=== PATIENT | male | born 1965 | race Caucasian/White ===

== ENCOUNTER 2017-01-12 09:12 | Inpatient (IN) | payer BC ==
[~2017-01-12] VITALS: Ht 177.8 cm; Wt 93.0 kg
[2017-01-12 09:33] LABS: BASOPHILS 0.2 % (0-2); EOSINOPHILS 0.3 % (0-7); HEMATOCRIT 48.5 % (42.0-54.0); HEMOGLOBIN 16.8 g/dL (13.5-17.5); IMMATURE GRANULOCYTES 0.3 % (0-5); LYMPHOCYTES 6.7 % (15-50); MCH 31.5 pg (26.0-34.0); MCHC 34.6 g/dL (31.0-37.0); MEAN PLATELET VOLUME 9.8 fL (7.4-10.4); MONOCYTES 8.3 % (2-11); NEUTROPHILS 84.2 % (40-80); PLATELET COUNT 143 10x3/uL (130-400); RBC 5.33 10x6/uL (4.20-6.10); RDW 13.2 % (11.5-14.5); WBC 11.7 10x3/uL (4.8-10.8)
[2017-01-12 09:48] LABS: ALBUMIN 3.6 g/dL (3.4-5.0); ANION GAP 10.2 mmol/L (8-16); BILIRUBIN - TOTAL 0.89 mg/dL (0.2-1.3); CALCIUM 9.3 mg/dL (8.5-10.1); CARBON DIOXIDE 30.2 mmol/L (21.0-32.0); CREATININE - SERUM 1.4 mg/dL (0.6-1.3); POTASSIUM - SERUM 4.4 mmol/L (3.5-5.1); PROTEIN - SERUM 6.7 g/dL (6.4-8.2)
[2017-01-12 10:32] LABS: APPEARANCE HAZY (CLEAR); BILIRUBIN NEGATIVE (NEGATIVE); COLOR DK YELLOW (YELLOW); GLUCOSE NEGATIVE (NEGATIVE); KETONE NEGATIVE (NEGATIVE); LEUKOCYTE ESTERASE NEGATIVE (NEGATIVE); NITRITE NEGATIVE (NEGATIVE); PROTEIN NEGATIVE (NEGATIVE); SPECIFIC GRAVITY 1.005 (1.005-1.020); UROBILINOGEN NORMAL (NORMAL)
[2017-01-12] MEDS ORDERED: TESTOSTERON200 MG/ML IM (10:49)
[2017-01-12] MEDS ORDERED: LISINOPRIL10 MG PO (10:50)
[2017-01-12] MEDS ORDERED: ZANTAC150 MG PO (10:50)
[2017-01-12 11:47] VITALS: BMI 29.4
[2017-01-12 12:30] VITALS: BP 103/64
[2017-01-12 16:02] VITALS: BP 97/43
[2017-01-13] VITALS: BP 92/44
[2017-01-13 04:00] VITALS: BP 110/61
[2017-01-13 05:16] LABS: BASOPHILS 0.3 % (0-2); EOSINOPHILS 0.8 % (0-7); HEMATOCRIT 46.8 % (42.0-54.0); HEMOGLOBIN 15.9 g/dL (13.5-17.5); IMMATURE GRANULOCYTES 0.2 % (0-5); MCH 31.5 pg (26.0-34.0); MCV 92.7 fL (80.0-100.0); MEAN PLATELET VOLUME 9.8 fL (7.4-10.4); MONOCYTES 8.2 % (2-11); NEUTROPHILS 77.5 % (40-80); PLATELET COUNT 137 10x3/uL (130-400); RBC 5.05 10x6/uL (4.20-6.10); RDW 13.5 % (11.5-14.5); WBC 9.2 10x3/uL (4.8-10.8)
[2017-01-13 05:32] LABS: ANION GAP 9.2 mmol/L (8-16); CALCIUM 8.3 mg/dL (8.5-10.1); CARBON DIOXIDE 31.8 mmol/L (21.0-32.0); CREATININE - SERUM 1.2 mg/dL (0.6-1.3)
[2017-01-13 08:23] VITALS: BP 123/69
[2017-01-13 13:03] VITALS: BP 117/71
[2017-01-13 15:15] VITALS: Ht 177.8 cm; Wt 93.0 kg
[2017-01-13 17:18] VITALS: BP 122/69
[2017-01-13 20:00] VITALS: BP 99/61
[2017-01-14] VITALS: BP 128/66
[2017-01-14 04:00] VITALS: BP 128/78
[2017-01-14 06:06] LABS: BASOPHILS 0.3 % (0-2); EOSINOPHILS 0.8 % (0-7); HEMATOCRIT 44.9 % (42.0-54.0); HEMOGLOBIN 15.3 g/dL (13.5-17.5); IMMATURE GRANULOCYTES 0.1 % (0-5); MCH 31.5 pg (26.0-34.0); MCHC 34.1 g/dL (31.0-37.0); MCV 92.4 fL (80.0-100.0); MEAN PLATELET VOLUME 9.6 fL (7.4-10.4); MONOCYTES 8.6 % (2-11); NEUTROPHILS 76.2 % (40-80); PLATELET COUNT 152 10x3/uL (130-400); RBC 4.86 10x6/uL (4.20-6.10); RDW 13.3 % (11.5-14.5); WBC 7.9 10x3/uL (4.8-10.8)
[2017-01-14 06:29] LABS: ANION GAP 13.6 mmol/L (8-16); CALCIUM 8.3 mg/dL (8.5-10.1); CARBON DIOXIDE 25.2 mmol/L (21.0-32.0); CREATININE - SERUM 1.1 mg/dL (0.6-1.3); POTASSIUM - SERUM 3.8 mmol/L (3.5-5.1)
[2017-01-14 08:31] VITALS: BP 127/81
[2017-01-14 20:00] VITALS: BP 125/77
[2017-01-15] VITALS: BP 128/65
[2017-01-15 04:00] VITALS: BP 125/78
[2017-01-15 05:09] LABS: BASOPHILS 0.5 % (0-2); EOSINOPHILS 2.1 % (0-7); HEMATOCRIT 45.6 % (42.0-54.0); HEMOGLOBIN 15.5 g/dL (13.5-17.5); LYMPHOCYTES 17.7 % (15-50); MCH 31.3 pg (26.0-34.0); MCV 91.9 fL (80.0-100.0); MEAN PLATELET VOLUME 9.7 fL (7.4-10.4); MONOCYTES 8.9 % (2-11); NEUTROPHILS 70.8 % (40-80); PLATELET COUNT 166 10x3/uL (130-400); RBC 4.96 10x6/uL (4.20-6.10); RDW 13.1 % (11.5-14.5)
[2017-01-15 05:11] LABS: WBC 5.7 10x3/uL (4.8-10.8)
[2017-01-15 05:18] LABS: ANION GAP 10.9 mmol/L (8-16); CREATININE - SERUM 1.1 mg/dL (0.6-1.3); POTASSIUM - SERUM 3.9 mmol/L (3.5-5.1)
[2017-01-15 08:39] VITALS: BP 137/65
[2017-01-15] MEDS ORDERED: LEVAQUIN750 MG PO (12:55)
[2017-01-15] MEDS ORDERED: FLAGYL500 MG PO (12:55)
[2017-01-15 13:10] VITALS: BP 151/97
== END 2017-01-15 14:35 | disposition home or self-care (01) | DRG 392 ==
LOC: D.LAB 09:12 → D.CT 09:30 → D.MS 10:39
PROVIDERS: ADMIT Surgery
DX: K57.80 Diverticulitis of intestine, part unspecified, with perforation and abscess without bleeding (principal); I10 Essential (primary) hypertension

== ENCOUNTER 2017-02-07 11:12 | Inpatient (IN) | payer BC ==
[~2017-02-07] VITALS: Ht 177.8 cm; Wt 90.7 kg
--- NOTE | ~2017-02-07 | PN ---
PATIENT:MECCA KIM MEDICAL RECORD: [id number] LOCATION:D.MS Liu222 ADMISSION DATE: 02/07/17 PROGRESS NOTE DATE OF SERVICE: 02/08/2017 CHIEF COMPLAINT: Diverticulitis. SUBJECTIVE: The patient is having less abdominal pain and tenderness. There is no peritonitis to percussion. Palpation aggravates. Nothing alleviates. His symptoms are moderate in severity. This is a progress note addendum. For the typed portion of the progress note, please see the chart. This would include past medical and surgical history, allergies and social history. REVIEW OF SYSTEMS: Positive for nausea. Positive for abdominal pain. PHYSICAL EXAMINATION: GENERAL: The patient does not appear acutely ill. He does not appear chronically ill. VITAL SIGNS: Reviewed. HEAD: External ears appear normal. EYES: Extraocular movements are intact. NECK: Trachea is midline. CHEST: No intercostal retractions. PULMONARY: Nonlabored, no stridor. ABDOMEN: As described above. IMPRESSION: Diverticulitis, improving. PLAN: Continue IV antibiotics for now. TRANSINT:[id number] Voice Confirmation ID: [id number] DOCUMENT ID: [id number] ESAU ROQUE MD CC: [id number] DICTATION DATE: 02/12/17 1113 DOWEL POINTER: 02/12/17 1842 DIS IN 02/12/17 [facility] [address] [place] [address]
--- NOTE | ~2017-02-07 | PN ---
PATIENT:MECCA KIM MEDICAL RECORD: [id number] LOCATION:D.MS Lal ADMISSION DATE: 02/07/17 PROGRESS NOTE DATE OF SERVICE: 02/11/2017 CHIEF COMPLAINT: Diverticulitis. SUBJECTIVE: The patient is feeling better. He is having less abdominal pain. I reviewed the CT images as well as the CT report. He is having less nausea. He is tolerating a diet. There is no peritonitis to percussion. He still has some abdominal tenderness. Palpation aggravates. Nothing alleviates. This is a progress note addendum. For the typed portion of progress note, please see the typed portion of the chart. This would include past medical and surgical history, allergies, and current medications. REVIEW OF SYSTEMS: Positive for nausea. No vomiting, no fever, no chills, no chest pain. Positive for abdominal pain. PHYSICAL EXAMINATION: GENERAL: The patient does not appear acutely ill. He does not appear chronically ill. VITAL SIGNS: Reviewed. HEAD: External ears appear normal. EYES: Extraocular movements are intact. NECK: Trachea is midline. CHEST: No intercostal retractions. PULMONARY: Nonlabored, no stridor. ABDOMEN: No peritonitis. Some tenderness in the left lower quadrant as well as the right lower quadrant. IMPRESSION: Diverticulitis with improvement. PLAN: Continue with intravenous antibiotics. The plan will be for conversion to outpatient oral antibiotics in a few days and then hopefully, a segmental colectomy in 6 weeks to 3 months. TRANSINT:[id number] Voice Confirmation ID: [id number] DOCUMENT ID: [id number] ESAU ROQUE MD CC: [id number] DICTATION DATE: 02/12/[address] MACHINE RUNNER: 02/12/17 1836 DIS IN 02/12/17 [facility] [address] [place] [address]
--- NOTE | ~2017-02-07 | PN ---
PATIENT:MECCA KIM MEDICAL RECORD: [id number] LOCATION:D.MS Lal ADMISSION DATE: 02/07/17 PROGRESS NOTE DATE OF SERVICE: 02/10/2017 CHIEF COMPLAINT: Diverticulitis. SUBJECTIVE: The patient is having some increased nausea. He is hungry however. As he has had increased nausea, I am going to order a repeat CT scan as there has been a change in his condition. Palpation aggravates. Nothing alleviates. He is having less abdominal pain, less abdominal tenderness. No peritonitis to cough. This is a progress note addendum. For the typed portion of the progress note, please see the chart. This will include the past medical and surgical history, allergies, social history and current medications. REVIEW OF SYSTEMS: Positive for nausea. No vomiting. PHYSICAL EXAMINATION: GENERAL: The patient does not appear acutely ill. He does not appear chronically ill. VITAL SIGNS: Reviewed. HEAD: External ears appear normal. EYES: Extraocular movements are intact. NECK: Trachea is midline. CHEST: No intercostal retractions. PULMONARY: Nonlabored. No stridor. ABDOMEN: As described above. IMPRESSION: Diverticulitis with increased nausea. PLAN: Continue IV antibiotics. Repeat CT scan of the abdomen and pelvis to ensure that the patient has not developed a perforation or abscess. TRANSINT:[id number] Voice Confirmation ID: [id number] DOCUMENT ID: [id number] ESAU ROQUE MD CC: [id number] DICTATION DATE: 02/12/171116 BATCHMAKER: 02/12/171904 DIS IN 02/12/17 [facility] [address] [place] [id number]
--- NOTE | ~2017-02-07 | PN ---
PATIENT:MECCA KIM MEDICAL RECORD: [id number] LOCATION:D.MS Liu222 ADMISSION DATE: 02/07/17 PROGRESS NOTE DATE OF SERVICE: 02/09/2017 CHIEF COMPLAINT: Diverticulitis. SUBJECTIVE: He continues to improve. He is having some nausea. Less abdominal pain. Palpation aggravates. Nothing alleviates. Symptoms are mild in severity. This is a progress note addendum. For the typed portion of the progress note, please see the chart. This would include the patient's past medical and surgical history, allergies and current medications. REVIEW OF SYSTEMS: Positive for nausea. Positive for abdominal pain. PHYSICAL EXAMINATION: GENERAL: The patient does not appear acutely ill. He does not appear chronically ill. VITAL SIGNS: Reviewed. HEAD: External ears appear normal. EYES: Extraocular movements are intact. NECK: Trachea is midline. CHEST: No intercostal retractions. PULMONARY: Nonlabored, no stridor. ABDOMEN: As described above. IMPRESSION: Diverticulitis, improving. This is a recurrent bout of diverticulitis. PLAN: Continue with IV antibiotics. TRANSINT:[id number] Voice Confirmation ID: [id number] DOCUMENT ID: [id number] ESAU ROQUE MD CC: [id number] DICTATION DATE: 02/12/17 1115 DUMPER BULK SYSTEM: 02/12/17 1843 DIS IN 02/12/[address] [facility] [address] [place] [address]
--- NOTE | ~2017-02-07 | CN ---
PATIENT NAME:MECCA KIM MEDICAL RECORD: [id number] : 61 LOCATION:D.MS Liu2229 ADMIT DATE: 02/07/17 ACCOUNT: [id number] CONSULTING PHYSICIAN: ESAU ROQUE MD REFERRING PHYSICIAN: BRISA REARDON MD DATE OF CONSULTATION: 02/07/2017 I just did a history and physical on him and instead of history and physical that should have been a consultation. If you would change that to a consultation, I would appreciate it. TRANSINT:[id number] Voice Confirmation ID: [id number] DOCUMENT ID: [id number] ESAU ROQUE MD CC: [id number] DICTATION DATE: 02/07/17 1605 TITLE ATTORNEY: 02/07/172206 ADM IN [place] [id number] [place] [id number]
--- NOTE | ~2017-02-07 | DS ---
PATIENT:MECCA KIM :61 MEDICAL RECORD: [id number] DISCHARGE SUMMARY ADMISSION DATE: 02/07/17 DISCHARGE DATE: 02/12/17 He is tolerating a regular diet. He is having almost no abdominal pain now. The abdominal pain that he is having is in the right lower quadrant. He is being dismissed home on Cipro as well as Flagyl, both for 10 days, as well as [place]. I will see him in the office in 2-3 weeks. My plan is a segmental colectomy, hopefully to be performed laparoscopically in 6 weeks to 3 months. This is a recurrent bout of diverticulitis. DIAGNOSIS: Recurrent diverticulitis. TRANSINT:[id number] Voice Confirmation ID: [id number] DOCUMENT ID: [id number] ESAU ROQUE MD CC: [id number] DICTATION DATE: 02/12/17 1142 STEM CLEANING MACHINE FEEDER: 02/13/17 0153 DIS IN 02/12/17 [facility] [address] [place] [address]
[~2017-02-07 11:12] MED LIST: FLAGYL500 MG PO; LEVAQUIN750 MG PO; LISINOPRIL10 MG PO; TESTOSTERON200 MG/ML IM; ZANTAC150 MG PO
[2017-02-07 11:33] LABS: BASOPHILS 0.2 % (0-2); EOSINOPHILS 0.5 % (0-7); HEMATOCRIT 50.2 % (42.0-54.0); HEMOGLOBIN 17.1 g/dL (13.5-17.5); IMMATURE GRANULOCYTES 0.3 % (0-5); LYMPHOCYTES 7.3 % (15-50); MCH 31.1 pg (26.0-34.0); MCHC 34.1 g/dL (31.0-37.0); MCV 91.4 fL (80.0-100.0); MEAN PLATELET VOLUME 9.4 fL (7.4-10.4); MONOCYTES 6.6 % (2-11); NEUTROPHILS 85.1 % (40-80); PLATELET COUNT 162 10x3/uL (130-400); RBC 5.49 10x6/uL (4.20-6.10); RDW 13.1 % (11.5-14.5); WBC 14.4 10x3/uL (4.8-10.8)
[2017-02-07 11:42] LABS: APPEARANCE CLEAR (CLEAR); BILIRUBIN NEGATIVE (NEGATIVE); COLOR YELLOW (YELLOW); GLUCOSE NEGATIVE (NEGATIVE); KETONE NEGATIVE (NEGATIVE); LEUKOCYTE ESTERASE NEGATIVE (NEGATIVE); NITRITE NEGATIVE (NEGATIVE); PROTEIN NEGATIVE (NEGATIVE); SPECIFIC GRAVITY 1.015 (1.005-1.020); UROBILINOGEN NORMAL (NORMAL)
[2017-02-07 11:52] LABS: ALBUMIN 3.9 g/dL (3.4-5.0); ANION GAP 12.5 mmol/L (8-16); BILIRUBIN - TOTAL 1.15 mg/dL (0.2-1.3); CALCIUM 9.5 mg/dL (8.5-10.1); CREATININE - SERUM 1.1 mg/dL (0.6-1.3); POTASSIUM - SERUM 4.5 mmol/L (3.5-5.1); PROTEIN - SERUM 7.2 g/dL (6.4-8.2)
--- NOTE | 2017-02-07 14:30 | NUR ---
RECEIVED TO ROOM 2229 FROM ER VIA . IV TO R FA PATENT.
[2017-02-07 14:38] VITALS: BP 100/61; BMI 28.7
--- NOTE | 2017-02-07 18:00 | NUR ---
VISITING WITH FAMILY. CALENDER WIND UP TENDER DILAUDID 0.2-10-0 IN USE FOR PAIN CONTROL.
[2017-02-07 20:00] VITALS: BP 100/62
[2017-02-08] VITALS: BP 122/68
[2017-02-08 04:00] VITALS: BP 106/44
[2017-02-08 06:43] LABS: BASOPHILS 0.2 % (0-2); EOSINOPHILS 0.7 % (0-7); HEMATOCRIT 45.1 % (42.0-54.0); HEMOGLOBIN 15.2 g/dL (13.5-17.5); IMMATURE GRANULOCYTES 0.2 % (0-5); MCHC 33.7 g/dL (31.0-37.0); MCV 91.9 fL (80.0-100.0); MEAN PLATELET VOLUME 10.1 fL (7.4-10.4); MONOCYTES 7.3 % (2-11); NEUTROPHILS 80.6 % (40-80); PLATELET COUNT 145 10x3/uL (130-400); RBC 4.91 10x6/uL (4.20-6.10); RDW 13.4 % (11.5-14.5); WBC 9.5 10x3/uL (4.8-10.8)
[2017-02-08 07:09] LABS: ALKALINE PHOSPHATASE 55 U/L (46-116); ALT (SGPT) 23 U/L (10-68); CALCIUM 8.1 mg/dL (8.5-10.1); CARBON DIOXIDE 26.3 mmol/L (21.0-32.0); CHLORIDE - SERUM 105 mmol/L (98-107); GLUCOSE 107 mg/dL (74-106); PROTEIN - SERUM 5.9 g/dL (6.4-8.2); SODIUM 137 mmol/L (136-145); eGFR NON AFRICAN AMERICAN 83 mL/min (90-120)
[2017-02-08 07:10] VITALS: BP 121/73
[2017-02-08 07:15] LABS: CALC OSMOLALITY 273 mosm/kg (275-300); POTASSIUM - SERUM 3.7 mmol/L (3.5-5.1); UREA NITROGEN 12 mg/dL (7-18)
--- NOTE | 2017-02-08 07:35 | NUR ---
LYING IN BED, DENIES NEEDS, BED LOWEST POSITION, CALL LIGHT IN REACH, WILL CONTINEU TO MONITOR
--- NOTE | 2017-02-08 09:06 | NUR ---
PATIENT SUPIN IN BED RESTING WITH EYES CLOSED. RESPIRATIONS EVEN AND UNLABORED. GUEST AT BEDSIDE. SIDE RAILS UP X2. BED IN LOW POSITION. CALL LIGHT IN REACH.
--- NOTE | 2017-02-08 09:20 | NUR ---
COMPLAINTS OF NAUSEA, ZOFRAN GIVEN
[2017-02-08 12:04] VITALS: BP 102/52; BP 125/62
[2017-02-08 15:54] VITALS: BP 117/65
--- NOTE | 2017-02-08 19:00 | NUR ---
PATIENT IN BED VISITING WITH . AAOX4. RR EVEN AND UNLABORED. 0 S/S OF DISTRESS. STATES PAIN IS A 6/10. IV TO RIGHT FA PATENT WITH NO REDNESS OR SWELLING. SCD'S OFF. SRX2. BED LOW. CALL LIGHT WITHIN REACH.
[2017-02-08 20:00] VITALS: BP 121/73
--- NOTE | 2017-02-08 22:30 | NUR ---
PATIENT AMBULATED IN HALLWAY AND NOW BACK IN ROOM. NIGHTTIME MEDICATIONS ADMINISTERED. NO OTHER NEEDS AT THIS TIME.
--- NOTE | 2017-02-09 03:00 | NUR ---
PATIENT SLEEPING WITH NO DISTRESS NOTED. CALL LIGHT WITHIN REACH.
[2017-02-09 06:56] LABS: BASOPHILS 0.2 % (0-2); EOSINOPHILS 0.8 % (0-7); HEMATOCRIT 44.4 % (42.0-54.0); HEMOGLOBIN 14.9 g/dL (13.5-17.5); IMMATURE GRANULOCYTES 0.2 % (0-5); LYMPHOCYTES 12.5 % (15-50); MCHC 33.6 g/dL (31.0-37.0); MCV 92.3 fL (80.0-100.0); MONOCYTES 9.6 % (2-11); NEUTROPHILS 76.7 % (40-80); PLATELET COUNT 147 10x3/uL (130-400); RBC 4.81 10x6/uL (4.20-6.10); RDW 13.1 % (11.5-14.5); WBC 9.1 10x3/uL (4.8-10.8)
[2017-02-09 07:03] LABS: AMYLASE - SERUM 38 U/L (25-115); CALC OSMOLALITY 276 mosm/kg (275-300); CALCIUM 8.1 mg/dL (8.5-10.1); CARBON DIOXIDE 25.4 mmol/L (21.0-32.0); CHLORIDE - SERUM 103 mmol/L (98-107); GLUCOSE 78 mg/dL (74-106); LIPASE 99 U/L (73-393); SODIUM 140 mmol/L (136-145); UREA NITROGEN 10 mg/dL (7-18); eGFR NON AFRICAN AMERICAN 83 mL/min (90-120)
--- NOTE | 2017-02-09 07:32 | NUR ---
LYING IN BED, SON AT BED SIDE, DENIES NEEDS, CALL LIGHT INREACH, WILL CONTINUE TO MONITOR
[2017-02-09 08:21] VITALS: BP 122/86
--- NOTE | 2017-02-09 09:15 | NUR ---
PATIENT ALERT IN BED. NO SIGNS OF DISTRESS NOTED. IV TO RIGHT FOREARM SALINE PER PATIENT REQUEST FOR SHOWER. NO NEEDS VOICED. BED IN LOW POSITION. CALL LIGHT IN REACH.
--- NOTE | 2017-02-09 10:04 | CN ---
PATIENT NAME:MECCA KIM MEDICAL RECORD: [id number] : 61 LOCATION:D.MS Liu2229 ADMIT DATE: 02/07/17 ACCOUNT: [id number] CONSULTING PHYSICIAN: ESAU ROQUE MD REFERRING PHYSICIAN: BRISA REARDON MD DATE OF CONSULTATION: HISTORY OF PRESENT ILLNESS: The patient has recurrent diverticulitis. He was hospitalized several weeks ago with diverticulitis. I have personally reviewed his CT images. I have personally reviewed the CT report. He has what appears to be severe diverticulitis with some bubbles of extraluminal air. I note no definite purulence. The air pockets at this time do not need any intervention. We have tried to treat him with IV antibiotics and then if his condition improves over the course of next week, then he can be dismissed home on oral antibiotics and then hopefully he can undergo a laparoscopic sigmoid colectomy in 6 weeks to 3 months. Otherwise, he may require a colostomy or CT-guided drainage. I have explained this to him. The pain was of an abrupt onset. It began at 2 this morning. No night sweats, no weight loss, no anorexia, no hemoptysis. He has been having bowel movements. Palpation aggravates. Nothing alleviates. Symptoms are moderate in severity. HOME MEDICATIONS: Lisinopril. ALLERGIES: No known drug allergies. PAST MEDICAL AND SURGICAL HISTORY: Hypertension, diverticulitis, appendectomy, tonsillectomy. REVIEW OF SYSTEMS: It is unknown if he has had fever, no nausea, no vomiting, no diarrhea. He does not feel constipated. PHYSICAL EXAMINATION: GENERAL: He does appear acutely ill. Does not appear chronically ill. VITAL SIGNS: Reviewed. HEAD: External ears appear normal. EYES: Extraocular movements are intact. NECK: Trachea is midline. CHEST: No intercostal retractions. PULMONARY: Nonlabored, no stridor. ABDOMEN: Nontender. IMPRESSION: Perforated diverticula. PLAN: IV antibiotics. IV narcotic analgesia. TRANSINT:[id number] Voice Confirmation ID: [id number] DOCUMENT ID: [id number] CONSULT REPORT [id number] MECCA KIM ROBERT MD at 1004 CC: PAOLA ROOT MD [id number] DICTATION DATE: 02/07/17 1425 ANTHROPOLOGY AND ARCHEOLOGY INSTRUCTOR: 02/07/17 1500 ADM IN [facility] [address] [facility]
--- NOTE | 2017-02-09 10:38 | NUR ---
Patient Name: MECCA KIM Admission Status: ER Accout number: [id number] Admission Date: 02-07-2017 : 1965 Admission Diagnosis: Attending: JAGRUTI Current LOS: 2 Anticipated DC Date: 02-12-2017 Planned Disposition: Home Primary Insurance[facility] Discharge Planning Comments: CM MET WITH PATIENT REGARDING D/C NEEDS AND PLANS. PATIENT STATED HE LIVES WITH HIS SPOUSE (CHRISS) AND SHE WILL DRIVE HIM HOME AT DISCHARGE. PATIENT HAS NO STEPS OR STAIRS AT HIS HOME. PATIENT IS INDEPENDENT WITH HIS CARE AND HAS NO DME AT HOME. PATIENTS PCP IS DR. ROOT AND USES [facility] ON [address] PATIENT STATED HE DOES NOT NEED HH AT THIS TIME. CM WILL CONTINUE TO FOLLOW PATIENT WITH D/C NEEDS AND PLANS. PCP DR. ROOT [facility] [phone] CHRISS (SPOUSE) [phone] Plastic Roller: Queenie Mccartney Is the patient Alert and Oriented? Yes 0 * How many steps to enter\exit or inside your home? 0 0 * PCP DR. ROOT 0 * Pharmacy [facility]. [address] 0 * Preadmission Environment Home with Family 0 * ADLs Independent 0 * Equipment None 0 * List name and contact numbers for known caregivers / representatives who currently or will assist patient after discharge: CHRISS () [phone] * Community resources currently utilized None 0 * Additional services required to return to the preadmission environment? Yes 0 * Can the patient safely return to the preadmission environment? Yes 0 * Has this patient been hospitalized within the prior 30 days at any hospital? Yes 0 Grand Total: 0
[2017-02-09 13:01] VITALS: BP 146/85
[2017-02-09 16:10] VITALS: BP 138/84
--- NOTE | 2017-02-09 19:00 | NUR ---
PATIENT IN BED VISITING WITH . AAOX4. RR EVEN AND UNLABORED. 0 S/S OF DISTRESS. STATES PAIN IS A 5/10. IV TO RIGHT FA PATENT WITH NO REDNESS OR SWELLING. SCD'S IN ROOM BUT OFF. SRX2. BED LOW. CALL LIGHT WITHIN REACH.
[2017-02-09 20:00] VITALS: BP 136/68
--- NOTE | 2017-02-09 20:30 | NUR ---
PATIENT AMBULATED IN HALLWAY WITH . NOW BACK IN ROOM. STARTED MERREM PER ORDER. PATIENT C/O IV BURNING. INSERTION SITE NOW SLIGHTLY RED. REMOVED CATHETER WITH TIP INTACT. RESITED IV TO LEFT FA. RESTARTED INFUSION.
--- NOTE | 2017-02-09 22:30 | NUR ---
PROTONIX GIVEN AND FLAGYL INITIATED PER ORDER. PATIENT DENIES NEEDS AT THIS TIME.
[2017-02-10] VITALS: BP 130/65
--- NOTE | 2017-02-10 03:00 | NUR ---
PATIENT SLEEPING WITH NO DISTRESS NOTED. CALL LIGHT WITHIN REACH.
[2017-02-10 06:13] LABS: BASOPHILS 0.3 % (0-2); EOSINOPHILS 1.6 % (0-7); HEMATOCRIT 44.1 % (42.0-54.0); HEMOGLOBIN 15.1 g/dL (13.5-17.5); IMMATURE GRANULOCYTES 0.1 % (0-5); LYMPHOCYTES 12.2 % (15-50); MCHC 34.2 g/dL (31.0-37.0); MCV 90.6 fL (80.0-100.0); MEAN PLATELET VOLUME 10.1 fL (7.4-10.4); MONOCYTES 9.6 % (2-11); NEUTROPHILS 76.2 % (40-80); PLATELET COUNT 152 10x3/uL (130-400); RBC 4.87 10x6/uL (4.20-6.10); RDW 12.8 % (11.5-14.5); WBC 7.3 10x3/uL (4.8-10.8)
[2017-02-10 06:29] LABS: CALC OSMOLALITY 273 mosm/kg (275-300); CALCIUM 7.9 mg/dL (8.5-10.1); CARBON DIOXIDE 22.3 mmol/L (21.0-32.0); CHLORIDE - SERUM 103 mmol/L (98-107); GLUCOSE 74 mg/dL (74-106); POTASSIUM - SERUM 3.7 mmol/L (3.5-5.1); SODIUM 138 mmol/L (136-145); UREA NITROGEN 9 mg/dL (7-18); eGFR NON AFRICAN AMERICAN 83 mL/min (90-120)
--- NOTE | 2017-02-10 07:30 | NUR ---
ASSESSMENT COMPLETE. IV TO L FA PATENT. NS INFUSING AT 100 CC/HR VIA PUMP. ELECTRIC VEHICLE ELECTRICIAN DILAUDID 0.2-10-0 IN USE FOR PAIN CONTROL. DENIES ANY COMPLAINT OF PAIN AT THIS TIME. COMPLAINING OF INTERMITTENT NAUSEA ESPECIALLY IN THE MORNINGS.
--- NOTE | 2017-02-10 08:13 | NUR ---
EGG CRATE APPLIED TO BED PER PATIENT REQUEST. AMBULATING IN HALLWAY WITH .
[2017-02-10 10:05] VITALS: BP 133/79
[2017-02-10 11:36] VITALS: BP 126/66
--- NOTE | 2017-02-10 12:00 | NUR ---
NO CHANGES NOTED. AMBULATES IN HALLWAYS. DENIES ANY NEEDS AT PRESENT.
[2017-02-10 14:23] LABS: ALP - ISO (ALP) 57 IU/L (39-117); ALP - ISO (BONE) FRACTION 22 % (12-68); ALP - ISO (LIVER) FRACTION 78 % (13-88); ALP - ISO(INTESTINAL) FRACTION 0 % (0-18)
[2017-02-10 15:02] VITALS: Ht 177.8 cm; Wt 90.7 kg
--- NOTE | 2017-02-10 15:30 | NUR ---
REPORTS HAVING BM AND ABDOMEN FEELING BETTER. NO NEEDS VOICED AT THIS TIME.
[2017-02-10 16:03] VITALS: BP 142/77
--- NOTE | 2017-02-10 18:34 | NUR ---
TOLERATING CLEAR LIQUID DIET AT THIS TIME.
[2017-02-10 19:00] VITALS: BP 119/77
--- NOTE | 2017-02-10 19:00 | NUR ---
BEDSIDE REPORT RECEIVED AND CARE OF PT ASSUMED. PT LYING IN SEMI BERG'S POSITION VISITING WITH FAMILY MEMBERS. IV IN LEFT FA PATENT WITH NS INFUSING AT 100 ML / HR. COMMERCIAL SPECIALIST / DILAUDID IN USE FOR PAIN CONTROL. WILL MONITOR CLOSELY FOR NEEDS.
--- NOTE | 2017-02-10 20:00 | NUR ---
PT ADVISED OF NPO STATUS STARTING AT MIDNIGHT. SIGNAGE PLACED ON DOOR.
--- NOTE | 2017-02-10 20:30 | NUR ---
HS MEDICATIONS GIVEN. WILL CONTINUE TO MONITOR FOR NEEDS.
--- NOTE | 2017-02-10 21:15 | NUR ---
PT UP AMBULATING IN THE HALLWAY.
[2017-02-11 04:00] VITALS: BP 141/81
[2017-02-11 05:53] LABS: BASOPHILS 0.6 % (0-2); EOSINOPHILS 2.8 % (0-7); IMMATURE GRANULOCYTES 0.2 % (0-5); LYMPHOCYTES 18.2 % (15-50); MCH 30.6 pg (26.0-34.0); MCHC 34.1 g/dL (31.0-37.0); MCV 89.8 fL (80.0-100.0); MEAN PLATELET VOLUME 9.7 fL (7.4-10.4); MONOCYTES 8.8 % (2-11); NEUTROPHILS 69.4 % (40-80); PLATELET COUNT 155 10x3/uL (130-400); RDW 12.9 % (11.5-14.5); WBC 5.4 10x3/uL (4.8-10.8)
[2017-02-11 06:22] LABS: ALBUMIN 2.9 g/dL (3.4-5.0); ALKALINE PHOSPHATASE 48 U/L (46-116); ALT (SGPT) 18 U/L (10-68); CALC OSMOLALITY 277 mosm/kg (275-300); CALCIUM 8.3 mg/dL (8.5-10.1); CARBON DIOXIDE 24.3 mmol/L (21.0-32.0); CHLORIDE - SERUM 106 mmol/L (98-107); CREATININE - SERUM 0.9 mg/dL (0.6-1.3); GLUCOSE 83 mg/dL (74-106); POTASSIUM - SERUM 3.7 mmol/L (3.5-5.1); PROTEIN - SERUM 6.2 g/dL (6.4-8.2); SODIUM 141 mmol/L (136-145); UREA NITROGEN 7 mg/dL (7-18); eGFR NON AFRICAN AMERICAN > 90 mL/min (90-120)
--- NOTE | 2017-02-11 08:12 | NUR ---
ASSESSMENT COMPLETE. IV TO L FA PATENT. NS INFUSING AT 100 CC/HR VIA. COMPENSATION ADVISOR DILAUDID 0.2-10-0 IN USE FOR PAIN CONTROL. NPO FOR CT TODAY.
[2017-02-11 08:42] VITALS: BP 124/73
--- NOTE | 2017-02-11 10:02 | NUR ---
CT OF ABDOMEN COMPLETED. AMBULATING IN HALLWAY. DENIES ANY NEEDS AT PRESENT.
[2017-02-11 12:01] VITALS: BP 162/93
--- NOTE | 2017-02-11 15:17 | NUR ---
RESTING QUIETLY IN BED WITH EYES CLOSED. RESP EVEN,NONLABORED.
[2017-02-11 15:45] VITALS: BP 131/77
--- NOTE | 2017-02-11 18:08 | NUR ---
DENIES ANY NEEDS AT PRESENT. VISITING WITH FAMILY.
[2017-02-11 20:00] VITALS: BP 143/87
[2017-02-12 04:00] VITALS: BP 146/90
[2017-02-12 06:21] LABS: BASOPHILS 0.5 % (0-2); EOSINOPHILS 2.4 % (0-7); HEMATOCRIT 45.3 % (42.0-54.0); HEMOGLOBIN 15.6 g/dL (13.5-17.5); LYMPHOCYTES 17.7 % (15-50); MCH 30.7 pg (26.0-34.0); MCHC 34.4 g/dL (31.0-37.0); MCV 89.2 fL (80.0-100.0); MEAN PLATELET VOLUME 9.9 fL (7.4-10.4); MONOCYTES 8.7 % (2-11); NEUTROPHILS 70.7 % (40-80); PLATELET COUNT 165 10x3/uL (130-400); RBC 5.08 10x6/uL (4.20-6.10); RDW 12.8 % (11.5-14.5); WBC 5.9 10x3/uL (4.8-10.8)
[2017-02-12 07:02] LABS: ALBUMIN 3.2 g/dL (3.4-5.0); ALKALINE PHOSPHATASE 50 U/L (46-116); ALT (SGPT) 21 U/L (10-68); BILIRUBIN - TOTAL 0.51 mg/dL (0.2-1.3); CALCIUM 8.5 mg/dL (8.5-10.1); CARBON DIOXIDE 28.3 mmol/L (21.0-32.0); CHLORIDE - SERUM 104 mmol/L (98-107); CREATININE - SERUM 0.9 mg/dL (0.6-1.3); GLUCOSE 96 mg/dL (74-106); POTASSIUM - SERUM 3.8 mmol/L (3.5-5.1); PROTEIN - SERUM 6.5 g/dL (6.4-8.2); SODIUM 142 mmol/L (136-145); eGFR NON AFRICAN AMERICAN > 90 mL/min (90-120)
[2017-02-12 07:05] LABS: CALC OSMOLALITY 279 mosm/kg (275-300); UREA NITROGEN 5 mg/dL (7-18)
--- NOTE | 2017-02-12 07:35 | NUR ---
PATIENT RESTING IN BED. PATIENT IS AWAKE, ALERT, AND ORIENTED X4. NO COMPLAINTS OF PAIN AT PRESENT TIME. MEDICAL GENETICIST DILAUDID AT BEDSIDE FOR PAIN CONTROL. ASSESSMENT COMPLETED. SEE FLOWSHEET FOR ANY DETAILS. IV SITE PATENT WITHOUT ANY S/S OF INFECTION NOTED IN PATIENT'S LEFT FOREARM. PATIENT DENIES ANY NEEDS AT PRESENT TIME. CALL LIGHT IN PATIENT'S REACH. WILL MONITOR.
[2017-02-12 08:16] VITALS: BP 134/91
[2017-02-12] MEDS ORDERED: HYDROCODON-ACE1 EAC7 PO (10:21)
[2017-02-12] MEDS ORDERED: FLAGYL500 MG PO (10:21)
[2017-02-12] MEDS ORDERED: CIPRO500 MG PO (10:22)
--- NOTE | 2017-02-12 10:57 | NUR ---
CM REASSESSMENT NOTE: PATIENT IS DISCHARGING HOME TODAY AND STATED HE DID NOT WANT HOME HEALTH AND HAS NO OTHER NEEDS FOR DISCHARGE. TAKING CARE OF EVERYTHING PER PATIENT. IS DRIVING PATIENT HOME TODAY.
--- NOTE | 2017-02-12 11:30 | NUR ---
PATIENT'S IV DC'D WITH THE CATHETER TIP STILL INTACT. PATIENT TOLERATED WELL. BANDAID APPLIED.
--- NOTE | 2017-02-12 11:35 | NUR ---
DISCHARGE INSTRUCTIONS VERBALIZED TO PATIENT. PATIENT VERBALIZED UNDERSTANDING AND SIGNED DISCHARGE SHEETS. CIPRO, FLAGYL, AND HYDROCODONE PRESCRIPTIONS GIVEN TO PATIENT.
--- NOTE | 2017-02-12 11:52 | NUR ---
PATIENT'S HERE. PATIENT DISCHARGED HOME VIA PRIVATE VEHICLE.
== END 2017-02-12 11:52 | disposition home or self-care (01) | DRG 392 ==
LOC: D.ER 11:12 → D.MS 14:02
PROVIDERS: Emergency Medicine; Family Medicine; Surgery; ADMIT Family Medicine Adult Medicine
DX: K57.20 Diverticulitis of large intestine with perforation and abscess without bleeding (principal); I10 Essential (primary) hypertension; K21.9 Gastro-esophageal reflux disease without esophagitis; F41.9 Anxiety disorder, unspecified

== ENCOUNTER 2017-03-09 05:25 | Inpatient (IN) | payer BC ==
[2017-03-08 10:07] LABS: CALC OSMOLALITY 274 mosm/kg (275-300); CALCIUM 9.2 mg/dL (8.5-10.1); CARBON DIOXIDE 27.2 mmol/L (21.0-32.0); CHLORIDE - SERUM 103 mmol/L (98-107); CREATININE - SERUM 0.9 mg/dL (0.6-1.3); GLUCOSE 101 mg/dL (74-106); POTASSIUM - SERUM 4.3 mmol/L (3.5-5.1); SODIUM 138 mmol/L (136-145); UREA NITROGEN 9 mg/dL (7-18); eGFR NON AFRICAN AMERICAN > 90 mL/min (90-120)
[2017-03-08 10:11] LABS: BASOPHILS 0.7 % (0-2); EOSINOPHILS 3.1 % (0-7); HEMOGLOBIN 16.2 g/dL (13.5-17.5); IMMATURE GRANULOCYTES 0.2 % (0-5); LYMPHOCYTES 28.7 % (15-50); MCH 30.7 pg (26.0-34.0); MCHC 34.5 g/dL (31.0-37.0); MCV 89.2 fL (80.0-100.0); MEAN PLATELET VOLUME 9.5 fL (7.4-10.4); MONOCYTES 8.1 % (2-11); NEUTROPHILS 59.2 % (40-80); PLATELET COUNT 174 10x3/uL (130-400); RBC 5.27 10x6/uL (4.20-6.10); RDW 12.8 % (11.5-14.5); WBC 5.4 10x3/uL (4.8-10.8)
[~2017-03-09] VITALS: Ht 177.8 cm; Wt 93.0 kg
[2017-03-09] VITALS (10 sets, daily range): BP systolic 69–109; BP diastolic 45–73; BMI 29.4
[~2017-03-09 05:25] MED LIST changes: +CIPRO500 MG PO; +HYDROCODON-ACE1 EAC7 PO
--- NOTE | 2017-03-09 10:36 | NUR ---
RECIEVED PT TO THE UNIT AT THIS TIME FROM RECOVERY. ORIENTED PT AND FAMILY TO ROOM AND UNIT AT THIS TIME. POST-OP VITALS STARTED. ASSESSMENT DONE PER FLOWSHEET. BED IN LOW POSITION AND CALL LIGHT WITHIN REACH. WILL CONTINUE TO MONITOR.
--- NOTE | 2017-03-09 16:45 | NUR ---
PT COMPLAINS OF FEELING TO HAVE TO URINATE, SPOKE WITH DR. DELGADO, I WAS TOLD THAT THE MIX COULD BE REMOVED LATER THIS EVENING IF THE PT WAS ABLE TO TOLERATE MOVEMENT AND SITTING IN A CHAIR. SAT PT UP TO CHAIR AT THIS TIME. WILL CONTINUE TO MONITOR.
[2017-03-10 04:00] VITALS: BP 100/60
[2017-03-10 06:19] LABS: BASOPHILS 0.1 % (0-2); EOSINOPHILS 0.1 % (0-7); HEMATOCRIT 41.8 % (42.0-54.0); HEMOGLOBIN 14.2 g/dL (13.5-17.5); IMMATURE GRANULOCYTES 0.4 % (0-5); LYMPHOCYTES 11.1 % (15-50); MCH 30.7 pg (26.0-34.0); MCV 90.5 fL (80.0-100.0); MEAN PLATELET VOLUME 9.5 fL (7.4-10.4); MONOCYTES 9.7 % (2-11); NEUTROPHILS 78.6 % (40-80); PLATELET COUNT 171 10x3/uL (130-400); RBC 4.62 10x6/uL (4.20-6.10); RDW 13.1 % (11.5-14.5)
[2017-03-10 06:35] LABS: CALC OSMOLALITY 277 mosm/kg (275-300); CALCIUM 8.2 mg/dL (8.5-10.1); CARBON DIOXIDE 26.8 mmol/L (21.0-32.0); CHLORIDE - SERUM 104 mmol/L (98-107); GLUCOSE 108 mg/dL (74-106); POTASSIUM - SERUM 4.1 mmol/L (3.5-5.1); SODIUM 139 mmol/L (136-145); UREA NITROGEN 11 mg/dL (7-18); eGFR NON AFRICAN AMERICAN 83 mL/min (90-120)
[2017-03-10 06:42] LABS: WBC 8.1 10x3/uL (4.8-10.8)
--- NOTE | 2017-03-10 07:30 | NUR ---
RECIEVED PT DURING WALKING ROUNDS. PT RESTING IN BED WITH NO COMPLAINTS OF PAIN OR DISCOMFORT AT THIS TIME. ASSESSMENT DONE PER FLOWSHEET. BED IN LOW POSITION AND CALL LIGHT WITHIN REACH. WILL CONTINUE TO MONITOR.
[2017-03-10 08:21] VITALS: BP 110/69
--- NOTE | 2017-03-10 08:23 | NUR ---
Patient Name: MECCA KIM Admission Status: Elective Accout number: [id number] Admission Date: 03-09-2017 : 1965 Admission Diagnosis: Attending: MISHA Current LOS: 1 Anticipated DC Date: 03-15-2017 Planned Disposition: Home or Self Care Primary Insurance: [employer] [facility] Discharge Planning Comments: CM MET WITH PATIENT REGARDING D/C NEEDS AND PLANS. PATIENT STATED HE LIVES WITH HIS (CHRISS) AND SHE WILL DRIVE HIM HOME AT DISCHARGE. PATIENT STATED THERE ARE NO STEPS OR STAIRS AT HIS HOME. PATIENT IS INDEPENDENT WITH HIS CARE AND HAS NO DME AT HOME. PATIENTS PCP IS DR. ROOT AND PHARMACY IS [facility]. [email or web address] PATIENT DOES NOT WANT HOME HEALTH AT DISCHARGE. CM WILL CONTINUE TO FOLLOW PATIENT WITH D/C NEEDS AND PLANS. PCP DR. ROOT [facility]. [address] [phone] CHRISS () [phone] Tray Worker: Queenie Mccartney Is the patient Alert and Oriented? Yes 0 * How many steps to enter\exit or inside your home? 0 0 * PCP DR. ROOT 0 * Pharmacy [facility] ON [address] 0 * Preadmission Environment Home with Family 0 * ADLs Independent 0 * Equipment None 0 * List name and contact numbers for known caregivers / representatives who currently or will assist patient after discharge: CHRISS () [phone] * Community resources currently utilized None 0 * Additional services required to return to the preadmission environment? Yes 0 * Can the patient safely return to the preadmission environment? Yes 0 * Has this patient been hospitalized within the prior 30 days at any hospital? Yes 0 Grand Total: 0
--- NOTE | 2017-03-10 10:35 | NUR ---
MIX REMOVED AT THIS TIME PER ORDER FROM DR. DELGADO. PT TOLERATED WELL. BED IN LOW POSITION AND CALL LIGHT WITHIN REACH. WILL CONTINUE TO MONITOR.
[2017-03-10 12:37] VITALS: BP 126/52
[2017-03-10 14:35] VITALS: Ht 177.8 cm; Wt 93.0 kg
[2017-03-10 15:54] VITALS: BP 110/70
[2017-03-10 19:00] VITALS: BP 196/65
--- NOTE | 2017-03-10 19:00 | NUR ---
BEDSIDE REPORT RECEVIED AND CARE OF PT ASSUMED. PT LYING IN SEMI BERG'S POSITION VISITING WITH SPOUSE. IV IN LEFT FA PATENT WITH NS INFUSING AT 125 ML / HR. DILAUDID TRUCK CLEANER IN USE FOR PAIN CONTROL, AND CONTROLLING PAIN WELL AT THIS ASSESSMENT. DRESSING ON MIDLINE ABDOMINAL INCISION CLEAN AND DRY. WILL MONITOR CLOSELY FOR NEEDS. CALL LIGHT WITHIN REACH.
--- NOTE | 2017-03-10 21:30 | NUR ---
HS MEDICATIONS GIVEN. GAVE CHICKEN BROOTH FOR HS SNACK. WILL CONTINUE TO MONITOR FOR NEEDS.
--- NOTE | 2017-03-11 | NUR ---
GAVE SCHEDULED IVPB TYLENOL AND TORADOL. PT RESTING QUIETLY AT THIS TIME. WILL CONTINUE TO MONITOR FOR NEEDS.
[2017-03-11 04:00] VITALS: BP 99/58
[2017-03-11 05:53] LABS: BASOPHILS 0.4 % (0-2); EOSINOPHILS 1.2 % (0-7); HEMATOCRIT 38.7 % (42.0-54.0); HEMOGLOBIN 12.8 g/dL (13.5-17.5); LYMPHOCYTES 26.1 % (15-50); MCH 30.1 pg (26.0-34.0); MCHC 33.1 g/dL (31.0-37.0); MCV 91.1 fL (80.0-100.0); MEAN PLATELET VOLUME 9.1 fL (7.4-10.4); MONOCYTES 10.4 % (2-11); NEUTROPHILS 61.9 % (40-80); PLATELET COUNT 142 10x3/uL (130-400); RBC 4.25 10x6/uL (4.20-6.10); RDW 13.1 % (11.5-14.5)
[2017-03-11 06:01] LABS: CALC OSMOLALITY 280 mosm/kg (275-300); CALCIUM 7.7 mg/dL (8.5-10.1); CARBON DIOXIDE 26.5 mmol/L (21.0-32.0); CHLORIDE - SERUM 108 mmol/L (98-107); CREATININE - SERUM 0.8 mg/dL (0.6-1.3); GLUCOSE 88 mg/dL (74-106); POTASSIUM - SERUM 4.1 mmol/L (3.5-5.1); SODIUM 142 mmol/L (136-145); UREA NITROGEN 9 mg/dL (7-18); eGFR NON AFRICAN AMERICAN > 90 mL/min (90-120)
[2017-03-11 06:09] LABS: WBC 5.1 10x3/uL (4.8-10.8)
--- NOTE | 2017-03-11 07:50 | NUR ---
PT AOX4 RESP EVEN AND NONLABORED PT DENIES NEEDS AT THIS TIME IV TO LEFT SUBCLAVIAN PATENT AND INTACT AT THIS TIME SRX2 BED AT LOWEST SETTING CALL LIGHT WITHIN REACH WILL CONTINUE TO MONITOR
[2017-03-11 07:59] VITALS: BP 109/79
[2017-03-11 12:21] VITALS: BP 107/62
[2017-03-11 14:00] VITALS: BP 142/74
--- NOTE | 2017-03-11 19:00 | NUR ---
BEDSIDE REPORT RECEIVED AND CARE OF PT ASSUMED. PT LYING IN SEMI BERG'S POSITION VISITING WITH SPOUSE. IV IN LEFT FA SALINE LOCKED. DRESSING ON ABDOMEN CLEAN AND DRY. WILL MONITOR CLOSELY FOR NEEDS. CALL LIGHT WITHIN REACH.
--- NOTE | 2017-03-11 20:04 | NUR ---
HS MEDICATIONS GIVEN. HELD LISINOPRIL DBP RUNNING LOW. GAVE NORCO FOR PAIN AT LEVEL 4/10. WILL MONITOR FOR NEEDS.
--- NOTE | 2017-03-11 21:50 | NUR ---
CALLED MD PER PT REQUEST FOR TUMS FOR ACID REFLUX. ORDER RECEIVED FOR 1000MG PO Q6 PRN.
[2017-03-11 22:49] VITALS: BP 92/54
--- NOTE | 2017-03-12 07:35 | NUR ---
PT AOX4 RESP EVEN AND NONLABORED PT DENIES NEEDS AT THIS TIME IV TO LEFT FOREARM PATENT AND INTACT AT THIS TIME SRX2 BED AT LOWEST SETTINGS CALL LIGHT WITHIN REACH WILL CONTINUE TO MONITOR
[2017-03-12 07:58] VITALS: BP 92/55
[2017-03-12] MEDS ORDERED: HYDROCODONE-APA1 TAB PO (09:30)
--- NOTE | 2017-03-12 10:58 | NUR ---
CM REASSESSMENT NOTE: PATIENT IS DISCHARGING TODAY/ DRIVING HIM HOME. PATIENT REFUSED HOME HEALTH AND HAD NO NEEDS FOR DISCHARGE.
--- NOTE | 2017-03-12 11:08 | NUR ---
IV DISCONTINUED WITH CATHETER INTACT AT THIS TIME PT AND SPOUSE GIVEN DISCHARGE INSTRUCTIONS AND 1 PAPER PRESCRIPTION FOR PAIN MEDS AT THIS TIME. PT AMBULATED TO FRONT ENTRANCE AND LEFT VIA PRIVATE VEHICLE AT THIS TIME
== END 2017-03-12 11:09 | disposition home or self-care (01) | DRG 330 ==
LOC: D.MS 05:25 → D.SDCHOLD 05:25 → D.MS 10:12
PROVIDERS: ADMIT Surgery
PROC: 0DBN0ZZ Excision of Sigmoid Colon, Open Approach (ICD-10-PCS; principal; 2017-03-09 07:30)
DX: K57.20 Diverticulitis of large intestine with perforation and abscess without bleeding (principal); I10 Essential (primary) hypertension